=== PATIENT | female | born 1970 | race Caucasian/White ===

== ENCOUNTER 2017-08-04 07:57 | Emergency (ER) | payer OTHER ==
[~2017-08-04] VITALS: Ht 180.3 cm; Wt 126.2 kg
[~2017-08-04 07:57] MED LIST: ACYCLOVIR200 MG PO; ALLOPURINOL300 MG PO; AVELOX400 MG PO; BYDUREON2 MG SC; Ceftin PO; DIOVAN HCT 81 TABLET PO; ENDOCET 5-3251 EACH PO; LEVOTHYROXINE200 MC1 PO; Levaquin PO; METFORMIN HCL1000 MG PO; MOTRIN600 MG PO; MOTRIN800 MG PO; NORCO 5/3251 TABLET PO; PERCOCET 5/31 TABLET PO; Proventil,Ventolin H IH; SYNTHROID100 MCG PO; VITAMIN D35000 UNIT PO; ZITHROMAX Z-PA250 MG PO
[2017-08-04] MEDS ORDERED: POTASSIUM CHLO10 ME4 PO (08:33)
[2017-08-04] MEDS ORDERED: BACTRIM,SEPT1 TABLET PO (08:33)
[2017-08-04] MEDS ORDERED: PROVENTIL,2.5 MG/3 M IH (10:22)
[2017-08-04 11:41] VITALS: BP 150/82
== END 2017-08-04 11:40 | disposition home or self-care (01) ==
LOC: EME 07:57
DX: J06.9 Acute upper respiratory infection, unspecified (principal); R11.0 Nausea; I10 Essential (primary) hypertension; Z90.49 Acquired absence of other specified parts of digestive tract; F17.200 Nicotine dependence, unspecified, uncomplicated
CPT/HCPCS: 71020; 94640; 99281; 99284

== ENCOUNTER 2018-01-19 07:05 | Emergency (ER) | payer OTHER ==
[~2018-01-19] VITALS: Ht 180.3 cm; Wt 103.2 kg
[~2018-01-19 07:05] MED LIST changes: +BACTRIM,SEPT1 TABLET PO; +POTASSIUM CHLO10 ME4 PO; +PROVENTIL,2.5 MG/3 M IH
[2018-01-19 08:16] LABS: MCH 30.4 PG (29.0-34.0); MCHC 34.2 G/DL (30.0-36.0); PLATELET COUNT 181 K/uL (156-360); RBC DIS.WIDTH-CV 12.7 % (11.8-14.6); RBC DIS.WIDTH-SD 41.2 % (39-53); RED BLOOD COUNT 4.27 M/uL (3.80-5.20); WHITE BLOOD COUNT 8.8 K/uL (4.1-10.2)
[2018-01-19] MEDS ORDERED: DIOVAN HCT 11 TABLET PO (08:20)
[2018-01-19] MEDS ORDERED: ASCORBIC ACID500 M3 PO (08:20)
[2018-01-19] MEDS ORDERED: VALTREX50 MG/ML PO (08:21)
[2018-01-19 08:30] LABS: CHLORIDE 107 mEq/L (99-109); POTASSIUM 3.7 mEq/L (3.7-5.4); SODIUM 142 mEq/L (136-147)
[2018-01-19 08:32] LABS: GLUCOSE 123 mg/dL (70-99)
[2018-01-19 08:36] LABS: CREATININE 0.6 mg/dL (0.6-1.3); GFR ESTIMATE (CALCULATED) > 59 mL/min/
[2018-01-19 08:37] LABS: TROP-I INTERPRETATION NEGATIVE; TROPONIN-I < 0.01 ng/mL (0.0-0.30); UREA NITROGEN (BUN) 8 mg/dL (9-23)
[2018-01-19 11:05] VITALS: BP 154/90
== END 2018-01-19 11:25 | disposition home or self-care (01) ==
LOC: EME 07:05
PROVIDERS: Emergency Medicine Emergency Medical Services
DX: R07.89 Other chest pain (principal); R00.2 Palpitations; I10 Essential (primary) hypertension; E11.9 Type 2 diabetes mellitus without complications; C85.90 Non-Hodgkin lymphoma, unspecified, unspecified site; F17.200 Nicotine dependence, unspecified, uncomplicated; Z90.49 Acquired absence of other specified parts of digestive tract; Z79.84 Long term (current) use of oral hypoglycemic drugs
CPT/HCPCS: 71045; 71275; 80048; 84484; 85027; 93005; 99281; 99285

== ENCOUNTER 2018-03-31 10:51 | Day surgery (SDC) | payer OTHER ==
[~2018-03-31] VITALS: Ht 180.3 cm; Wt 125.6 kg
[~2018-03-31 10:51] MED LIST changes: +ASCORBIC ACID500 M3 PO; +BACTRIM,SEPT1 TABLE1 PO; +DIOVAN320 MG PO; +LIPITOR10 MG PO; +NORVASC5 MG PO; +VALTREX50 MG/ML PO; +VICTOZA0.6 MG/0.1 SC
[2018-03-31 11:18] VITALS: BP 137/81
[2018-03-31 15:42] VITALS: BP 120/57
[2018-03-31 16:20] VITALS: BP 159/80
== END 2018-03-31 16:33 | disposition home or self-care (01) ==
LOC: SDC 10:51
PROVIDERS: Orthopaedic Surgery Sports Medicine
PROC: 0SBD4ZZ Excision of Left Knee Joint, Percutaneous Endoscopic Approach (ICD-10-PCS; principal; 2018-03-31)
DX: S83.232A Complex tear of medial meniscus, current injury, left knee, initial encounter (principal); S83.272A Complex tear of lateral meniscus, current injury, left knee, initial encounter; I10 Essential (primary) hypertension; E11.9 Type 2 diabetes mellitus without complications; E03.9 Hypothyroidism, unspecified; W01.0XXA Fall on same level from slipping, tripping and stumbling without subsequent striking against object, initial encounter; Y93.01 Activity, walking, marching and hiking; Y92.89 Other specified places as the place of occurrence of the external cause; Z87.891 Personal history of nicotine dependence; Z79.84 Long term (current) use of oral hypoglycemic drugs; Z85.72 Personal history of non-Hodgkin lymphomas
CPT/HCPCS: 71045; 82948; J0131; J0171; J1100; J1885; J2250; J2405; J2765; J3010; Q0175